=== PATIENT | female | born 1990 | race Caucasian/White ===

== ENCOUNTER 2019-02-10 10:31 | Inpatient (IN) | payer OTHER ==
[~2019-02-10] VITALS: Ht 162.6 cm; Wt 73.6 kg
[2019-02-10 10:40] VITALS: BP 112/80; PULSE 75; RESP 17; Ht 162.6 cm; Wt 73.6 kg
--- NOTE | 2019-02-10 15:26 | HP ---
Date/Time of Note Date/Time of Note DATE: 02/10/19 TIME: 15:22 OB - History Hx of Present Free Text/Dictation February 10, 2019 : 1 Para: 0 Care: Good Care Other Concerns: 28-year-old G1, P0 with IUP at 38 weeks and 1 day was sent to labor and delivery for testing due to size more than dates and concern for possible borderline polyhydramnios. Patient denies any leaking of fluid, vaginal bleeding decreased movement or any other complaint. She was noted to have One episode of late deceleration during observation in triage and decision was made to admit the patient for observation and continuous monitoring. Discussed with the patient if there is evidence of recurrence late deceleration may consider delivery. Past Family/Social History * Past Medical, Surgical, Family and Obstetric Histories reviewed from chart. OB Admission Exam Vital Signs Vital Signs Vital Signs Date Temp Pulse Resp B/P (MAP) Pulse Ox O2 O2 Flow FiO2 Time Delivery Rate 02/10/19 97.9 75 17 112/80 10:40 (91) Physical Exam HEENT: WNL Lungs: Clear Abdomen: WNL Reflexes: Normal Cervical Dilatation: None Effacement: 0% Heart Rate: 130's Accelerations: Accelerations Present Decelerations: No Decelerations Varibility: Moderate Contractions on Admission: >10 Minutes Apart Intensity: Mild Last 72 hours Lab Results PROCEDURE: US OB. CLINICAL INDICATION: Size and dates TECHNIQUE: Multiple sonographic images of the pelvis and gravid uterus were obtained. The images were reviewed on a PACS workstation. COMPARISON: No prior studies are available for comparison. FINDINGS: Gestation: Single live intrauterine gestation. Cardiac activity: 154 beats per minute. Presentation: Vertex. Placenta: Location: Posterior Appearance: No previa or abruption. Measurements: BPD = 8.7 cm, 35 weeks and 0 days HC = 32.5 cm, 3 weeks and 6 days AC = 33.9 cm, 37 weeks and 5 days FL = 7.3 cm, 37 weeks and 3 days Gestational Age: AUA estimated gestational age: 36 weeks 5 days LMP estimated gestational age: 38 weeks 1 day AUA estimated date of delivery: 03/05/19 The EFW = 3161 g, 40%ile based on LMP age. RPTAT: AA PROCEDURE: US OB biophysical profile. CLINICAL INDICATION: decreased movements, contractions TECHNIQUE: Multiple sonographic images of the pelvis were obtained. The images were reviewed on a PACS workstation. COMPARISON: No prior studies are available for comparison. FINDINGS: There is a single live intrauterine gestation. Cardiac activity is present with 152 beats per minute. There is a vertex presentation. The placenta is posterior. There is no evidence of placental abruption. TAE = 21.4 cm. Slightly increased echogenicity of the amniotic fluid. Biophysical profile: movement 2/2 tone 2/2. breathing 2/2 TAE 2/2 Total 04/28 RPTAT: AA . IMPRESSION: Normal biophysical profile. Mild polyhydramnios. . OB Assessment/Plan Other Assessment: IUP at 38 weeks and 1 day Borderline polyhydramnios Category 2 tracing. Episode of subtle late deceleration and resolved. Patient will be admitted for observation closely and monitoring Discussed with the patient in frequent episodes of late deceleration may decide about induction Patient verbalized understanding. Currently no evidence of labor or PPROM. Proceed with continuous monitoring MALGORZATA JIMENES MD February 10, 2019 15:26
[2019-02-11] MEDS: LACTATED RINGER'S 1,000 ML IV PRN ×3 (13:42→21:17)
[2019-02-11] MEDS ORDERED: MISOPROSTOL 200 MCG TAB PR PRN (15:00)
[2019-02-11] MEDS ORDERED: LIDOCAINE 1% (MPF) 30 ML INJ INJ PRN (15:00)
[2019-02-11] MEDS ORDERED: METHYLERGONOVINE 0.2 MG INJ IM PRN (15:00)
[2019-02-11] MEDS ORDERED: BUTORPHANOL 2 MG INJ IV PRN (15:00)
[2019-02-11] MEDS ORDERED: CARBOPROST 250 MCG INJ IM PRN (15:00)
[2019-02-11] MEDS ORDERED: OXYTOCIN 30 UNITS/LR 500 ML IV PRN (15:00)
[2019-02-11] MEDS ORDERED: IBUPROFEN 600 MG TAB PO PRN (15:00)
[2019-02-11] MEDS ORDERED: OXYTOCIN 30 UNITS/LR 500 ML IV SCH ×2 (15:00)
[2019-02-11] MEDS ORDERED: AMPICILLIN 2 GM/NS (PMX) 100 ML ONE (19:26)
[2019-02-11] MEDS ORDERED: AMPICILLIN 2 GM/NS (PMX) 100 ML IVPB ONE (19:30)
[2019-02-11] MEDS ORDERED: DIPHENHYDRAMINE 50 MG INJ IV PRN (20:00)
[2019-02-11] MEDS ORDERED: NALOXONE (0.4 MG/ML) INJ IV PRN (20:00)
[2019-02-11] MEDS ORDERED: FENTAnyl 2MCG/ML-ROPIV 0.2% 100 ML BAG EPI SCH (20:00)
[2019-02-11] MEDS ORDERED: ONDANSETRON 4 MG INJ IV PRN (20:00)
--- NOTE | 2019-02-11 20:00 | PREAC ---
Date/Time of Note Date/Time of Note DATE: 02/11/19 TIME: 19:52 Anesthesia Eval and Record Evaluation Time Pre-Procedure Interview DATE: 02/11/19 TIME: 19:52 Age 28 Sex female NPO: 8 hrs Preoperative diagnosis IUP Planned procedure L&D Epidural Past Medical History Past Medical History: Includes Surgery & Anesthesia Issues No known issue Meds Anticoagulation: No Beta Sveta within 24 hr: No Reason Beta Sveta not given: Pt. not on B-Sveta Current Medications Lactated Ringer's 1,000 ml @ 125 mls/hr Q8H PRN IV LABOR INDUCTION Last administered on 02/11/19at 13:42; Admin Dose 125 MLS/HR; Start 02/11/19 at 13:30 Butorphanol Tartrate (Stadol) 2 mg Q2H PRN IV .PAIN SCALE 6-10; Start 02/11/19 at 15:00 Lidocaine (Xylocaine 1% (Mpf)) 30 ml ONCE PRN INJ .EPISIOTOMY; Start 02/11/19 at 15:00 Oxytocin/Lactated Ringer's 500 ml @ 500 mls/hr ONCE POST IV ; Start 02/11/19 at 15:00 Oxytocin/Lactated Ringer's 500 ml @ 125 mls/hr POST IV ; Start 02/11/19 at 15:00 Ibuprofen (Motrin) 600 mg ONCE PRN PO .PAIN 1-5; Start 02/11/19 at 15:00 Oxytocin/Lactated Ringer's 500 ml @ 0 mls/hr ONCE PRN IV .VAGINAL BLEEDING; Start 02/11/19 at 15:00 Methylergonovine Maleate (Methergine) 0.2 mg ONCE PRN IM .VAGINAL BLEEDING; Start 02/11/19 at 15:00 Carboprost Tromethamine (Hemabate) 250 mcg ONCE PRN IM .VAGINAL BLEEDING; Start 02/11/19 at 15:00 Misoprostol (Cytotec) 1,000 mcg ONCE PRN ID .VAGINAL BLEEDING; Start 02/11/19 at 15:00 Ampicillin 100 ml @ 100 mls/hr ONCE ONCE IVPB ; Start 02/11/19 at 19:30; Stop 02/11/19 at 20:29 Ampicillin 50 ml @ 100 mls/hr Q4 IVPB ; Start 02/11/19 at 21:00 Meds reviewed: Yes Allergies Coded Allergies: No Known Allergy (Unverified , 02/10/19) Allergies Reviewed: Yes Labs/Studies Labs Reviewed: Reviewed by anesthesiologist Result Diagram: 02/11/19 1240 Laboratory Tests 02/11/19 12:40 Blood Bank Test 02/11/19 12:40 Antibody Screen NEGATIVE Blood Type B POSITIVE Rh Immune Globulin Candidate NO test: Positive Studies: ECG Pre-procedure Exam Last vitals Vital Signs Date Temp Pulse Resp B/P (MAP) Pulse Ox O2 O2 Flow FiO2 Time Delivery Rate 02/10/19 97.9 75 17 112/80 10:40 (91) Airway: Adequate mouth opening, Adequate thyromental dist Mallampati: Mallampati II Teeth: Normal Lung: Normal Heart: Normal ASA Physical Status ASA physical status: 2 Emergency: None Planned Anesthetic Neuraxial: Epidural Planned Pain Management Epidural Pre-operative Attestations Prior to commencing anesthesia and surgery, the patient was re-evaluated, there was verification of: *The patient's identity *The results of appropriate recent lab work and preoperative vital signs *The above evaluation not changing prior to induction *Anesthetic plan, risk benefits, alternative and complications discussed with patient/family; questions answered; patient/family understands, accepts and wis hes to proceed. SIVA HALE MD February 11, 2019 20:00
[2019-02-11] MEDS: AMPICILLIN 1 GM/NS (PMX) 50 ML IVPB SCH (22:54)
[2019-02-12] MEDS ORDERED: MINERAL OIL LIGHT 10 ML VIAL TOP ONE (02:00)
[2019-02-12] MEDS ORDERED: OXYTOCIN 30 UNITS/LR 500 ML IV SCH (03:07)
[2019-02-12] MEDS: LACTATED RINGER'S 1,000 ML IV* SCH ×3 (03:07→19:07)
[2019-02-12] MEDS: AMPICILLIN 1 GM/NS (PMX) 50 ML IVPB SCH (03:09)
--- NOTE | 2019-02-12 03:09 | LDN ---
Date/Time of Note Date/Time of Note DATE: 02/12/19 TIME: 03:08 Delivery Summary Weeks of Gestation Term gestation Placenta Delivered: Spontaneously Meconium: Thick Episiotomy: Yes Laceration repair: Medial episiotomy repaired with 2-0 Vicryl Anesthesia type: Epidural Estimated blood loss: 100 Sponge & Needle done & correct: Yes All needle counts correct: Yes Any foreign bodies felt in the: No Delivery Information Sex Sex: female Apgars 1 Minute: 8 5 Minute: 9 Suctioning Nose & mouth suctioned at jeison: Yes Delee suction performed: No Umbilical Cord Umbilical cord with: 3 Vessels Cord presentations: nuchal cord (X1 tight manually reduced) Cord Blood was obtained: Yes Mother & Baby Disposition Disposition Baby's weight 3245 g/ 7 pounds 2 ounces Mom & Baby to Maternity; Good: Yes Baby to NICU: No Copies To: CC: BEATRIZ SHARPE BAHAREH MD February 12, 2019 03:09
[2019-02-12] MEDS ORDERED: IBUPROFEN 600 MG TAB PO PRN (03:30)
[2019-02-12] MEDS ORDERED: DIBUCAINE 1% 30 GM OINT TOP PRN (03:30)
[2019-02-12] MEDS ORDERED: CARBOPROST 250 MCG INJ IM PRN (03:30)
[2019-02-12] MEDS ORDERED: MISOPROSTOL 200 MCG TAB PR PRN (03:30)
[2019-02-12] MEDS ORDERED: OXYTOCIN 30 UNITS/LR 500 ML IV PRN (03:30)
[2019-02-12] MEDS ORDERED: SENNA/DOCUSATE NA (8.6MG/50MG) TAB PO PRN (03:30)
[2019-02-12] MEDS ORDERED: METHYLERGONOVINE 0.2 MG INJ IM PRN (03:30)
[2019-02-12] MEDS ORDERED: ACETAMINOPHEN 325 MG TAB PO PRN ×2 (03:30)
[2019-02-12] MEDS ORDERED: MAGNESIUM HYDROXIDE 30ML CUP PO PRN (03:30)
[2019-02-12] MEDS ORDERED: ONDANSETRON 4 MG INJ IV PRN (03:30)
[2019-02-12 05:30] VITALS: BP 119/71; PULSE 60; RESP 19
[2019-02-12] MEDS: BENZOCAINE 20% 56 ML SPRAY TOP PRN (06:52)
[2019-02-12] MEDS: WITCH HAZEL/GLYCERIN PAD PR PRN (06:52)
--- NOTE | 2019-02-12 06:53 | PAC ---
Date/Time of Note Date/Time of Note DATE: 02/12/19 TIME: 06:52 Post-Anesthesia Notes Post-Anesthesia Note Last documented vital signs Vital Signs Date Temp Pulse Resp B/P (MAP) Pulse Ox O2 O2 Flow FiO2 Time Delivery Rate 02/12/19 98.2 60 19 119/71 05:30 (87) Activity: WNL Respiratory function: WNL Cardiovascular function: WNL Mental status: Baseline Pain reasonably controlled: Yes Hydration appropriate: Yes Nausea/Vomiting absent: Yes Comments BP:112/56, P:88, Spo2:100%, T:98,8 SIVA HALE MD February 12, 2019 06:53
[2019-02-12 08:00] VITALS: BP 115/74; PULSE 72; RESP 20
[2019-02-12 12:00] VITALS: BP 129/84; PULSE 83; RESP 20
[2019-02-12 16:00] VITALS: BP 117/73; PULSE 80; RESP 20
[2019-02-12 20:30] VITALS: BP 127/76; PULSE 78; RESP 18
[2019-02-12] MEDS: LANOLIN HPA 1 PKT TOP PRN (20:32)
[2019-02-13] MEDS: LACTATED RINGER'S 1,000 ML IV* SCH ×3 (03:07→21:31)
[2019-02-13 04:00] VITALS: BP 111/56; PULSE 80; RESP 17
[2019-02-13] MEDS: BENZOCAINE 20% 56 ML SPRAY TOP PRN (08:06)
[2019-02-13] MEDS: LANOLIN HPA 1 PKT TOP PRN (08:06)
[2019-02-13] MEDS: WITCH HAZEL/GLYCERIN PAD PR PRN (08:06)
[2019-02-13 08:15] VITALS: BP 109/74; PULSE 75; RESP 20
--- NOTE | 2019-02-13 13:34 | PN ---
Date/Time of Note Date/Time of Note DATE: 02/13/19 TIME: 13:33 OB Subjective Subjective Subjective PPD# 1 Patient is doing well. She denies nausea, vomiting, shortness of breath, chest pain, headache. She has been ambulating without difficulty, tolerating regular diet. Pain is well controlled on current medications OB Objective Objective Objective VS - Last 72 Hours, by Label Date Temp Pulse Resp B/P (MAP) Pulse Ox O2 O2 Flow FiO2 Time Delivery Rate 02/13/19 98.0 75 20 109/74 Room Air 08:15 (86) 02/13/19 98.0 80 17 111/56 Room Air 04:00 (74) 02/12/19 98.0 78 18 127/76 Room Air 20:30 (93) 02/12/19 98.4 80 20 117/73 Room Air 16:00 (88) 02/12/19 98.3 83 20 129/84 Room Air 12:00 (99) 02/12/19 98.2 72 20 115/74 Room Air 08:00 (88) 02/12/19 98.2 60 19 119/71 05:30 (87) General: AAO X 3, comfortable, NAD, appropriate mood and affect. ABD: +BS. Soft, non-tender. Uterus 2 cm below umbilicus Flank: No CVA tenderness (B/L) LE: Mild edema. No clubbing, cyanosis, thigh or calf tenderness (B/L). Homans 'sign is negative OB Assessment/Plan Other plan: 28 years old 1 para 1-0-0-1 s/p normal vaginal delivery at 38 weeks and 3 days. PPD#1 - AF, VSS - Contraception methods with R/B/A/FR discussed - Continue care - Discharge home tomorrow - Rx and instruction given - Follow up in 2 and 6 weeks at clinic BEATRIZ SHARPE February 13, 2019 13:34
--- NOTE | 2019-02-13 13:36 | DS ---
Date/Time of Note Date/Time of Note DATE: 02/13/19 TIME: 13:35 Obstetrical Discharge Record Final Diagnosis Final Diagnosis: Term delivered Other Final Diagnosis 28 years old 1 para 1-0-0-1 s/p normal vaginal delivery at 38 weeks and 3 days. PPD#1. Her course was unremarkable. She is ambulating and tolerating regular diet. She is voiding without difficulty. Pain is controlled on current medication. - AF, VSS - Contraception methods with R/B/A/FR discussed - Continue care - Discharge home tomorrow - Rx and instruction given - Follow up in 2 and 6 weeks at clinic Condition on Discharge Physical Assessment Voiding: Yes Bowel Movement: Yes Breast: Soft, non-tender Fundus: Firm Calf Tenderness: No Patient Condition: Stable BEATRIZ SHARPE February 13, 2019 13:35
[2019-02-13 16:01] VITALS: BP 113/78; PULSE 86; RESP 18
[2019-02-13 19:45] VITALS: BP 123/78; PULSE 70; RESP 19
[2019-02-14] MEDS: LACTATED RINGER'S 1,000 ML IV* SCH ×2 (03:07→11:07)
[2019-02-14 03:45] VITALS: BP 116/74; PULSE 60; RESP 18
[2019-02-14 08:00] VITALS: BP 90/53; PULSE 62; RESP 17
--- NOTE | 2019-02-14 09:34 | DS ---
Date/Time of Note Date/Time of Note DATE: 02/14/19 TIME: 09:33 Obstetrical Discharge Record Final Diagnosis Final Diagnosis: Term delivered Other Final Diagnosis day #2 Status post Patient stable and afebrile Vital signs stable Hematology - 72 Hrs Test 02/11/19 12:40 02/13/19 07:34 Hematocrit 41.6 % (37.0-47.0) 34.4 % (37.0-47.0) L Hemoglobin 14.5 g/dl (12.0-16.0) 11.8 g/dl (12.0-16.0) L Mean Corpuscular 31.9 pg (29.0-33.0) 32.0 pg (29.0-33.0) Hemoglobin Mean Corpuscular 34.9 g/dl (32.0-37.0) 34.3 g/dl (32.0-37.0) Hemoglobin Concent Mean Corpuscular Volume 91.6 fl (82.0-101.0) 93.2 fl (82.0-101.0) Mean Platelet Volume 12.9 fl (7.4-10.4) H 12.4 fl (7.4-10.4) H Platelet Count 142 10^3/UL (140-415) 114 10^3/UL (140-415) L Red Blood Count 4.54 10^6/ul (4.20-5.40) 3.69 10^6/ul (4.20-5.40) L Red Cell Distribution 12.2 % (11.5-14.5) 12.2 % (11.5-14.5) Width White Blood Count 9.2 10^3/ul (4.8-10.8) 12.6 10^3/ul (4.8-10.8) #H Abdomen soft, fundus firm Perineum intact Extremities nontender Assessment and plan Patient stable and doing well Plan to discharge home Patient instructed to follow-up with [facility] in 2 and 6 weeks Vaginal Delivery Obstetrical Delivery: Spontaneous Condition on Discharge Physical Assessment Last Vitals: VS - Last 72 Hours, by Label Date Temp Pulse Resp B/P (MAP) Pulse Ox O2 O2 Flow FiO2 Time Delivery Rate 02/14/19 98.2 62 17 90/53 (65) Room Air 08:00 02/14/19 97.9 60 18 116/74 Room Air 03:45 (88) 02/13/19 98.9 70 19 123/78 Room Air 19:45 (93) 02/13/19 98.3 86 18 113/78 16:01 (90) 02/13/19 98.0 75 20 109/74 Room Air 08:15 (86) 02/13/19 98.0 80 17 111/56 Room Air 04:00 (74) 02/12/19 98.0 78 18 127/76 Room Air 20:30 (93) 02/12/19 98.4 80 20 117/73 Room Air 16:00 (88) 02/12/19 98.3 83 20 129/84 Room Air 12:00 (99) 02/12/19 98.2 72 20 115/74 Room Air 08:00 (88) 02/12/19 98.2 60 19 119/71 05:30 (87) Voiding: Yes Bowel Movement: Yes Breast: Soft, non-tender Fundus: Firm Calf Tenderness: No Patient Condition: Good Copies To: CC: BEATRIZ SHARPE ; VIANCA WADE MD February 14, 2019 09:34
[2019-02-14] MEDS: WITCH HAZEL/GLYCERIN PAD PR PRN (12:01)
[2019-02-14] MEDS: LANOLIN HPA 1 PKT TOP PRN (12:01)
--- NOTE | 2019-02-15 16:28 | DELSUM ---
Delivery Summary A-C Datetime Report Generated by CPN: 02/15/2019 16:28 DELIVERY PERSONNEL Food And Beverage Analyst: Whittaker, Sima MATERNAL INFORMATION Delivery Anesthesia: Epidural Medications in Delivery: 30 UNITS PITOCIN Delivery QBL (ml): 100 Placenta Cultured: Yes Maternal Complications: None LABOR SUMMARY EDC: 02/23/2019 00:00 No. Babies in Womb: 0 Attempted: No Labor Anesthesia: Epidural LABOR INFORMATION Reason for Induction: Not Applicable Onset of Labor: 02/11/2019 12:05 Complete Dilatation: 02/12/2019 01:57 Oxytocin: N/A Group B Beta Strep: Positive Antibiotics # of Doses: 2 Antibiotics Time of Last Dose: 02/11/2019 23:00 Steroids Given: None Reason Steroids Not Administered: Not Applicable MEMBRANES Membranes Rupture Method: Artificial Rupture of Membranes: 02/11/2019 14:47 Length of Rupture (hr): 11.87 Amniotic Fluid Color: Heavy Meconium Amniotic Fluid Amount: Moderate Amniotic Fluid Odor: None STAGES OF LABOR Stage 1 hr: 13 Stage 1 min: 52 Stage 2 hr: 0 Stage 2 min: 42 Stage 3 hr: 0 Stage 3 min: 6 Total Time in Labor hr: 14 Total Time in Labor min: 40 VAGINAL DELIVERY Episiotomy: Median Laceration Extension: N/A Laceration Type: None Laceration Repair: Yes Initial Vag Sponge Count: 10 Final Vag Sponge Count: 10 Initial Vag Sharps Count: 4 Final Vag Sharps Count: 4 Sponge Count Correct: Yes; Vaginal Sweep Performed Sharps Count Correct: Yes BABY A INFORMATION Infant Delivery Date/Time: 02/12/2019 02:39 Method of Delivery: Vaginal Born in Route : No : N/A Forceps: N/A Vacuum Extraction: N/A Shoulder Dystocia : No SHOULDER DYSTOCIA BABY A Delivery Date/Time: 02/12/2019 02:39 PRESENTATION/POSITION BABY A Presentation: Cephalic Cephalic Presentation: Vertex Breech Presentation: N/A PLACENTA INFORMATION BABY A Placenta Delivery Time : 02/12/2019 02:45 Placenta Method of Delivery: Expressed Placenta Status: Delivered SCORES BABY A Heart Rate 1 min: >100 bpm Resp Effort 1 min: Good Cry Reflex Irritability 1 min: Cough/Sneeze/Pulls Away Muscle Tone 1 min: Active Motion Color 1 min: Blue/Pale Resuscitation Effort 1 min: Tactile Stimulation SCORE 1 MIN: 8 Heart Rate 5 min: >100 bpm Resp Effort 5 min: Good Cry Reflex Irritability 5 min: Cough/Sneeze/Pulls Away Muscle Tone 5 min: Active Motion Color 5 min: Body [place], Extremit Blue Resuscitation Effort 5 min: Tactile Stimulation SCORE 5 MIN: 9 INFORMATION BABY A Gestational Age at Delivery: 38.3 Gestational Status: Early Term- 37- 38.6 Weeks Infant Outcome : Liveborn Infant Condition : Stable Infant Sex: Female IDENTIFICATION/MEDS BABY A ID Band Number: [id number] ID Band Location: Right Leg; Left Leg Sensor Applied: Yes Sensor Number: [id number] Sensor Location : Cord Clamp Vitamin K Given : Not Given Erythromycin Given: Not Given WEIGHT/LENGTH BABY A Birthweight (gm): 3245 Infant Weight (lb): 7 Weight (oz): 2 Length (in): 19.00 Infant Length (cm): 48.26 CORD INFORMATION BABY A No. Cord Vessels: 3 Nuchal Cord : Around Neck x1, Tight Cord Blood Taken: Yes Suction: Mouth; Nose ASSESSMENT BABY A Infant Complications: Multiple Variable Decels; Meconium Physical Findings at Delivery: Molding of the Head; Within Normal Limits Respirations: Appears Normal Cutting Pressman/ALS Called : No Care By: VERÓNICA Transferred To: Remains with Mother
== END 2019-02-14 16:27 | disposition home or self-care (01) | DRG 807 ==
LOC: OBT 10:31 → L-D 10:32 → OBT 12:30 → L-D 12:30 → PP1 14:22 → L-D 02-11 12:06 → PP1 02-12 05:09
PROVIDERS: ADMIT Obstetrics & Gynecology; ATTEND Obstetrics & Gynecology
PROC: 10E0XZZ Delivery of Products of Conception, External Approach (ICD-10-PCS; principal; 2019-02-12)
PROC: 0W8NXZZ Division of Female Perineum, External Approach (ICD-10-PCS; 2019-02-12)
DX: O40.3XX0 Polyhydramnios, third trimester, not applicable or unspecified (principal); O69.1XX0 Labor and delivery complicated by cord around neck, with compression, not applicable or unspecified; O77.0 Labor and delivery complicated by meconium in amniotic fluid; O76 Abnormality in fetal heart rate and rhythm complicating labor and delivery; Z3A.38 38 weeks gestation of pregnancy; Z37.0 Single live birth
CPT/HCPCS: 62322; 76815; 76818; 85025; 85610; 85730; 86592; 86850; 86900; 86901; 99464; G0463; J0290; J2405; J2590; J3010; J7120

== ENCOUNTER 2019-04-18 14:56 | Emergency (ER) | payer OTHER ==
[~2019-04-18] VITALS: Ht 162.6 cm; Wt 65.3 kg
[2019-04-18 15:12] VITALS: Ht 162.6 cm; Wt 65.3 kg
--- NOTE | 2019-04-18 15:16 | ERD ---
ER Documentation Chief Complaint Chief Complaint ROS All systems reviewed and are negative except as per history of present illness. Medications Home Meds No Active Prescriptions or Reported Meds Allergies Allergies: Coded Allergies: No Known Allergy (Unverified , 02/10/19) Physical Exam Vitals Vital Signs Date Temp Pulse Resp B/P (MAP) Pulse Ox O2 O2 Flow FiO2 Time Delivery Rate 04/18/19 98.0 80 18 103/72 99 Room Air 15:24 (82) 04/18/19 98.0 79 18 103/72 99 15:12 (82) Physical Exam Const: No acute distress Head: Atraumatic Eyes: Normal Conjunctiva ENT: Normal External Ears, Nose and Mouth. Neck: Full range of motion. No meningismus. Resp: Clear to auscultation bilaterally Cardio: Regular rate and rhythm, no murmurs Abd: Soft, non tender, non distended. Normal bowel sounds Skin: No petechiae or rashes Back: No midline or flank tenderness Ext: No cyanosis, or edema Neur: Awake and alert Psych: Normal Mood and Affect LEMUEL BONILLA MD Apr 18, 2019 15:16
--- NOTE | 2019-04-18 16:57 | ERD ---
ER Documentation Chief Complaint Chief Complaint r elbow pain s/p split & fall while holding her 2mth old baby HPI This is a 28-year-old previous healthy female who is presenting after a me chanical fall. The patient reportedly tripped while having her baby in her arms landing on her right side. She did hit her right elbow and sustained a small abrasion to the right elbow. She can range the joint without difficulty. The patient does not endorse any other trauma or injury. She did not hit her head. She did not lose consciousness. She does not have any neck or back pain. She does not endorse any cardiothoracic or abdominal injury. She was easily ambulatory after the event. She does not endorse any alleviating or exacerbating factors at this time. The patient denies feeling sick recently. The patient denies fever or chills. The patient has had no headache or vision changes. The patient denies lightheadedness or dizziness. The patient has had no chest pain or trouble breathing. The patient denies nausea or vomiting. The patient denies abdominal pain. The patient denies changes to bowel movements or urination. The patient has had no focal deficits. The patient has had no weakness or numbness or tingling to the face or extremities. ROS All systems reviewed and are negative except as per history of present illness. Medications Home Meds No Active Prescriptions or Reported Meds Allergies Allergies: Coded Allergies: No Known Allergy (Unverified , 02/10/19) PMhx/Soc History of Surgery: No Anesthesia Reaction: No Hx Neurological Disorder: No Hx Respiratory Disorders: No Hx Cardiac Disorders: No Hx Psychiatric Problems: No Hx Miscellaneous Medical Probl: No Hx Alcohol Use: No Hx Substance Use: No Hx Tobacco Use: No Smoking Status: Never smoker FmHx Family History: No diabetes Physical Exam Vitals Vital Signs Date Temp Pulse Resp B/P (MAP) Pulse Ox O2 O2 Flow FiO2 Time Delivery Rate 04/18/19 98.0 80 18 103/72 99 Room Air 15:24 (82) 04/18/19 98.0 79 18 103/72 99 15:12 (82) Physical Exam Const: No acute distress Head: Atraumatic. No coronado sign. Eyes: Normal Conjunctiva. EOMI. No raccoon eyes. ENT: Normal External Ears, Nose and Mouth. Neck: Full range of motion. No meningismus. No midline spinal tenderness. No step-offs or deformities. Resp: Clear to auscultation bilaterally Cardio: Regular rate and rhythm, no murmurs Abd: Soft, non tender, non distended. Normal bowel sounds Skin: No petechiae or rashes Back: No midline or flank tenderness. No midline spinal tenderness. No step-offs or deformities. Ext: No cyanosis, or edema. Right elbow abrasion. Neur: Awake and alert Psych: Normal Mood and Affect Procedures/MDM MDM The patient presents after a ground-level fall. Patient did sustain an abrasion to the right elbow which does not require emergent treatment. There is no other evidence of trauma or injury. The patient had no head trauma, cardiothoracic trauma or abdominal trauma. The patient does not endorse any neck or back trauma. TREATMENT/DISPOSITION The patient does not require emergent treatment. DISCHARGE Upon reevaluation of the patient, symptoms have improved. No emergent diagnoses were identified. At this time, I feel that the patient stable for discharge. The patient was instructed to follow-up with a primary care physician in 1-3 days. The patient will be given strict precautions with which to return to the emergency department. Prescriptions: None DISCLAIMER Inadvertent spelling and grammatical errors are likely due to EHR/dictation so ftware use and do not reflect on the overall quality of patient care. Note that the electronic time recorded on this note does not necessarily reflect the actual time of the patient encounter. Departure Diagnosis: Primary Impression: Fall from ground level Additional Impression: Abrasion of right elbow, initial encounter Condition: Stable Patient Instructions: Contusion, Elbow, Fall Prevention Additional Instructions: Thank you for for coming to [facility] for your care today. Please ask your nurse or provider if you have questions about your care today and do not leave until all your questions have been answered. Please use any medications given as directed and follow-up with your doctor (or the doctor you were referred to) in the next 1-3 days. If you do not have a primary care doctor you may follow up at the [facility] or [facility] (listed below). You may also use motrin and tylenol as needed for fever and/or pain unless instructed otherwise by your provider or nurse. Indications for more urgent follow-up have been discussed, but you may return to the Emergency Department at ANY time for any worrisome or worsening symptoms. If you have abdominal pain, please know that no test or exam you received is p erfect and you should follow up within 8 hours for continued pain. If you had any imaging studies today, such as an X-Ray or CT Scan, these studies will be reviewed later by a radiologist. You will be called if there are important findings that were not identified today, so make sure the contact information you provided at registration is correct. If you received any narcotic pain control medicine today, such as Vicodin, Morphine or Dilaudid, your coordination and judgment may be affected for a number of hours. Please do not drive or operate heavy machinery, and you may want someone to assist you at home. If you were given a prescription for narcotic medication, be aware that it is very addictive- use sparingly and only if necessary. PLEASE SEEK FURTHER EVALUATION AND MANAGEMENT AT YOUR DOCTORS OFFICE WITHIN THE NEXT 1-3 DAYS. IT IS YOUR RESPONSIBILITY TO MAKE AN APPOINTMENT FOR FOLOW-UP CARE. IF YOU HAVE A PRIMARY DOCTOR, PLEASE CALL THEIR OFFICE TO SCHEDULE AN APPOINTMENT FOR FOLLOW UP. IF YOU DO NOT HAVE A PRIMARY DOCTOR YOU CAN CALL OUR PHYSICIAN REFERRAL HOTLINE AT IF YOU CAN NOT AFFORD TO SEE A PHYSICIAN YOU CAN CHOSE FROM THE FOLLOWING [facility]: [facility] [address] [facility] [facility] [address] [facility] [facility] [address] [facility] [facility] [address] [facility]. [facility] [address] [facility]. [facility]. [address] ANNA CASTRO MD Apr 18, 2019 16:57
[2019-04-18 17:34] VITALS: BP 110/75; PULSE 84; RESP 16
== END 2019-04-18 17:37 | disposition home or self-care (01) ==
LOC: E/R 14:56
DX: S50.311A Abrasion of right elbow, initial encounter (principal); W01.10XA Fall on same level from slipping, tripping and stumbling with subsequent striking against unspecified object, initial encounter; Y92.9 Unspecified place or not applicable
CPT/HCPCS: 99283